=== PATIENT | male | born 1975 | race African-American/Black ===

== ENCOUNTER 2021-04-08 00:20 | Emergency (ER) | payer MEDICAID, MEDICARE, OTHER ==
[~2021-04-08] VITALS: Ht 172.7 cm; Wt 74.8 kg
--- NOTE | 2021-04-08 00:40 | NUR ---
PATIENT [id number] C/O SUICIDAL IDEATION WITH NO PLAN. PATIENT IS A/O, RR EVEN AND UNLABORED, NO SOB NOTED. PATIENT CONNECTED TO MEDICAL CLAIMS EXAMINER AND POX. SITTER AT BEDSIDE. WILL CONTINUE TO MONITOR. NO ACUTE DISTRESS NOTED.
[2021-04-08 00:56] LABS: BASOPHILS % (AUTO) 0.7 % (0.0-2.0); EOSINOPHILS % (AUTO) 1.8 % (0.0-6.0); HEMATOCRIT 36 % (39-51); LYMPHOCYTES # (AUTO) 1.8 K/uL (0.8-4.8); LYMPHOCYTES % (AUTO) 28.4 % (20.0-44.0); MEAN CORPUSCULAR HGB CONC 33 g/dl (31.0-36.0); MEAN CORPUSCULAR VOLUME 82 fL (80-96); MONOCYTES # (AUTO) 0.8 K/uL (0.1-1.30); MONOCYTES % (AUTO) 13.5 % (2.0-12.0); NEUTROPHILS # (AUTO) 3.5 K/uL (1.8-8.9); NEUTROPHILS % (AUTO) 55.6 % (43.0-81.0); PLATELET COUNT (AUTO) 312 K/uL (150-450); RED BLOOD CELL COUNT(AUTO) 4.44 MIL/uL (4.5-6.0); WHITE BLOOD COUNT (AUTO) 6.2 K/uL (4.3-11.0)
--- NOTE | 2021-04-08 02:15 | NUR ---
Patient is resting comfortably in bed with eyes closed. Easily aroused. VSS
[2021-04-08 03:37] LABS: CHLORIDE 100 mmol/L (98-107); POTASSIUM 3.8 mmol/L (3.5-5.1); SODIUM SERUM 138 mmol/L (136-145)
[2021-04-08 03:38] LABS: CALCIUM, SERUM 8.6 mg/dL (8.5-10.1); CARBON DIOXIDE 27 mmol/L (21-32); CREATININE 0.7 mg/dL (0.6-1.3); GLUCOSE 263 mg/dL (74-106); UREA NITROGEN, BLOOD 8 mg/dL (7-18)
[2021-04-08 03:43] LABS: ALANINE AMINOTRANSFERASE 32 U/L (12-78); ALBUMIN 3.6 g/dL (3.4-5.0); ALKALINE PHOSPHATASE 91 U/L (46-116); ASPARTATE AMINOTRANSFERASE 18 U/L (15-37); BILIRUBIN,DIRECT 0.1 mg/dL (0.0-0.2); BILIRUBIN,TOTAL 0.2 mg/dL (0.2-1.0); TOTAL PROTEIN, SERUM 7.5 g/dL (6.4-8.2)
[2021-04-08 03:44] LABS: ACETAMINOPHEN 0 ug/ml (10-30)
[2021-04-08 04:03] LABS: ALCOHOL, BLOOD < 3 mg/dL (0-0)
--- NOTE | 2021-04-08 04:28 | NUR ---
URINE SPECIMEN COLLECTED AND SENT TO LAB.
[2021-04-08 04:55] LABS: BILIRUBIN,URINE NEGATIVE (NEGATIVE); COLOR,URINE YELLOW (YELLOW); LEUKOCYTE ESTERASE ,URINE NEGATIVE (NEGATIVE); NITRITE, URINE NEGATIVE (NEGATIVE); PH,URINE 6.5 (5.0-8.0); PROTEIN,URINE NEGATIVE (NEGATIVE); UGLUCOSE >=1000 mg/dL (NEGATIVE)
[2021-04-08 05:32] LABS: BACTERIA,URINE None seen /HPF (None Seen); RBC,URINE 0-2 /HPF (0-2); SQUAMOUS EPITHELIAL CELL,UR Few /HPF (None Seen); WBC,URINE 0-2 /HPF (0-3)
--- NOTE | 2021-04-08 05:37 | NUR ---
pt sleeping, breathing evenly, attached to monitor
--- NOTE | 2021-04-08 07:51 | NUR ---
called [facility] intake for update. spoke to yani. no available beds at this time.
--- NOTE | 2021-04-08 20:00 | NUR ---
PATIENT IN BED RESTING, VSS, PATIENT PROVIDED WITH PO FLUID TOLERATING WELL. PATIENT NOTED WITH NO ACUTE DISTRESS. PATIENT CONNECTED TO MONITORS.
[2021-04-08] MEDS ORDERED: INSULIN REGULAR, HUMAN 100 UNIT/ML 10 ML VIAL ONE (20:23)
[2021-04-08] MEDS ORDERED: INSULIN REGULAR, HUMAN 100 UNIT/ML 10 ML VIAL SQ ONE (20:30)
--- NOTE | 2021-04-09 00:39 | NUR ---
REC'D A CALL FROM ART AT [facility]. PT GOT ACCEPTED AT [facility] BY DR CROCKETT, GOING TO UNIT 2. # FOR REPORT: [phone] "PLEASE ARRANGE TRANSPORTATION FOR AFTER 1100"
--- NOTE | 2021-04-09 00:48 | NUR ---
[facility] ETA: 1200 NOON
--- NOTE | 2021-04-09 02:14 | NUR ---
Patient is resting comfortably in bed with eyes closed. Easily aroused. VSS
--- NOTE | 2021-04-09 04:45 | NUR ---
PT SLEEPING, ATTACHED TO MONITOR AND POX.VSS
--- NOTE | 2021-04-09 05:50 | NUR ---
CALLED FOR REPORT. NOTIFIED TO CALL AFTER 0800HRS
--- NOTE | 2021-04-09 09:05 | NUR ---
report given to Babak CAMARA for balbina.
[2021-04-09 10:07] VITALS: BP 128/71
--- NOTE | 2021-04-09 10:08 | NUR ---
Patient given written and verbal discharge instructions. Patient verbalizes understanding of instructions. Patient is ambulatory with steady gait. Refuses offer of [facility] placement. Patient given list of available shelters in surrounding area.
== END 2021-04-09 10:08 ==
LOC: ER 00:22
DX: R45.851 Suicidal ideations (principal); Z59.00 Homelessness unspecified; Z20.822 Contact with and (suspected) exposure to COVID-19; R03.0 Elevated blood-pressure reading, without diagnosis of hypertension; Z53.29 Procedure and treatment not carried out because of patient's decision for other reasons; R73.9 Hyperglycemia, unspecified
CPT/HCPCS: 36415; 80048; 80076; 80143; 80307; 80320; 81001; 82962 ×2; 85025; 87426; 96372; 99285; C9803; J1815; G0480

== ENCOUNTER 2021-04-26 15:12 | Emergency (ER) | payer MEDICARE, OTHER ==
[~2021-04-26] VITALS: Ht 180.3 cm; Wt 70.3 kg
[2021-04-26 15:31] VITALS: BP 124/74
--- NOTE | 2021-04-26 15:32 | NUR ---
[id number] HEARING VOICES TO HURT HIMSELF BY RUNNING INTO TRAFFIC. PT CALM & COOPERATIVE, NAD NOTED AT THIS TIME. PT REQUESTING A MEAL. WILL CONT TO MONITOR.
[2021-04-26] MEDS ORDERED: OLANZAPINE 5 MG TABLET PO ONE (16:00)
[2021-04-26 16:01] LABS: BILIRUBIN,URINE SMALL (NEGATIVE); COLOR,URINE YELLOW (YELLOW); LEUKOCYTE ESTERASE ,URINE Negative (NEGATIVE); NITRITE, URINE Negative (NEGATIVE); PH,URINE 5.5 (5.0-8.0); PROTEIN,URINE 100 mg/dl (NEGATIVE); UGLUCOSE >=1000 mg/dL (NEGATIVE); UROBILINOGEN,URINE >=8.0 EU/dL (0.2)
[2021-04-26 16:06] LABS: BACTERIA,URINE Few /HPF (None Seen); MUCUS,URINE Few /LPF (None Seen); RBC,URINE 0-2 /HPF (0-2); SQUAMOUS EPITHELIAL CELL,UR Few /HPF (None Seen); WBC,URINE 0-2 /HPF (0-3)
[2021-04-26 16:07] LABS: SPERM,URINE Moderate /HPF (None Seen)
[2021-04-26] MEDS ORDERED: OLANZAPINE 5 MG TABLET ONE (17:46)
--- NOTE | 2021-04-26 17:48 | NUR ---
THE PATIENT IS HAVING DINNER. TOLERATES PROVIDED FOOD WELL.
--- NOTE | 2021-04-26 18:50 | NUR ---
PT RAVEN MONTEZ PA AWARE.
[2021-04-27] MEDS ORDERED: ZYPREXA (09:30)
[2021-04-27] MEDS ORDERED: QUET400T PO (09:30)
[2021-04-27] MEDS ORDERED: METF500T PO (09:30)
== END 2021-04-26 19:00 | disposition left against medical advice (07) ==
LOC: ER 16:16
DX: R45.851 Suicidal ideations (principal); Z20.822 Contact with and (suspected) exposure to COVID-19; G40.909 Epilepsy, unspecified, not intractable, without status epilepticus; F19.10 Other psychoactive substance abuse, uncomplicated; F20.9 Schizophrenia, unspecified; Z59.00 Homelessness unspecified; Z53.29 Procedure and treatment not carried out because of patient's decision for other reasons
CPT/HCPCS: 81001; C9803

== ENCOUNTER 2021-04-26 19:52 | Inpatient (IN) | payer MEDICARE, OTHER ==
[~2021-04-26] VITALS: Ht 175.3 cm; Wt 74.8 kg
--- NOTE | 2021-04-26 20:05 | NUR ---
PT BIBRA C/O BEING FOUND IN THE MIDDLE OF TRAFFIC AND SUICIDAL IDEATION. PT AAOX3 BREATHING EVENLY AND UNLABORED. PT ATTACHED TO MONITOR AND POX.PT CHANGED INTO GOWN, AND BELONGINGS TAKEN AWAY AND PLACED IN LOCKER. SITTER AT BEDSIDE. WILL CONTINUE TO MONITOR.
[2021-04-26 20:33] LABS: BASOPHILS % (AUTO) 0.4 % (0.0-2.0); EOSINOPHILS % (AUTO) 0.2 % (0.0-6.0); HEMATOCRIT 39 % (39-51); HEMOGLOBIN 13.1 g/dL (13.5-17.5); LYMPHOCYTES # (AUTO) 0.8 K/uL (0.8-4.8); MEAN CORPUSCULAR HGB CONC 34 g/dl (31.0-36.0); MEAN CORPUSCULAR VOLUME 79 fL (80-96); MONOCYTES # (AUTO) 0.6 K/uL (0.1-1.30); MONOCYTES % (AUTO) 6.7 % (2.0-12.0); NEUTROPHILS % (AUTO) 82.7 % (43.0-81.0); PLATELET COUNT (AUTO) 290 K/uL (150-450); RED BLOOD CELL COUNT(AUTO) 4.91 MIL/uL (4.5-6.0); WHITE BLOOD COUNT (AUTO) 8.4 K/uL (4.3-11.0)
[2021-04-26 20:46] LABS: ALANINE AMINOTRANSFERASE 21 U/L (12-78); ALBUMIN 3.9 g/dL (3.4-5.0); ALKALINE PHOSPHATASE 77 U/L (46-116); ASPARTATE AMINOTRANSFERASE 20 U/L (15-37); BILIRUBIN,DIRECT 0.3 mg/dL (0.0-0.2); BILIRUBIN,TOTAL 1.4 mg/dL (0.2-1.0); CARBON DIOXIDE 24 mmol/L (21-32); CHLORIDE 98 mmol/L (98-107); CREATININE 0.7 mg/dL (0.6-1.3); GLUCOSE 214 mg/dL (74-106); SODIUM SERUM 137 mmol/L (136-145); TOTAL PROTEIN, SERUM 8.3 g/dL (6.4-8.2); UREA NITROGEN, BLOOD 13 mg/dL (7-18)
[2021-04-26 20:47] LABS: ALCOHOL, BLOOD < 3 mg/dL (0-0); POTASSIUM 2.8 mmol/L (3.5-5.1)
--- NOTE | 2021-04-26 20:47 | NUR ---
PER LAB, POTASSIUM 2.8
[2021-04-26] MEDS ORDERED: POTASSIUM CHLORIDE 10 MEQ TABLET.SA ONE (20:59)
[2021-04-26] MEDS ORDERED: POTASSIUM CHLORIDE 20 MEQ TAB.PRT.SR PO ONE ×2 (20:59→21:00)
[2021-04-26] MEDS ORDERED: POTASSIUM CL. PREMIX PERIPHER. 50 ML ONE ×2 (21:00→21:02)
[2021-04-26] MEDS ORDERED: POTASSIUM CL. PREMIX PERIPHER. 50 ML IV ONE (21:00)
--- NOTE | 2021-04-26 21:26 | NUR ---
LFA #18 RFA S/L; PATENT AND INTACT PT SLEEPING AT THIS TIME; WILL WAIT TO ADMIN UNTIL PT WAKES UP. RESPONSIVE TO PAIN
[2021-04-26] MEDS ORDERED: IV NS 0.9% 1,000 ML BAG IV ONE (21:30)
--- NOTE | 2021-04-26 21:56 | NUR ---
URINE SENT TO LAB
[2021-04-26 22:40] LABS: BILIRUBIN,URINE SMALL (NEGATIVE); COLOR,URINE YELLOW (YELLOW); LEUKOCYTE ESTERASE ,URINE Negative (NEGATIVE); NITRITE, URINE Negative (NEGATIVE); PH,URINE 5.5 (5.0-8.0); PROTEIN,URINE 30 mg/dl (NEGATIVE); UGLUCOSE 500 MG/DL mg/dL (NEGATIVE)
[2021-04-26 22:42] LABS: BACTERIA,URINE Rare /HPF (None Seen); RBC,URINE NONE SEEN /HPF (0-2); SQUAMOUS EPITHELIAL CELL,UR Few /HPF (None Seen); WBC,URINE NONE SEEN /HPF (0-3)
--- NOTE | 2021-04-26 23:17 | NUR ---
COVID SWAB SENT TO LAB
[2021-04-26 23:32] LABS: CALCIUM, SERUM 9.1 mg/dL (8.5-10.1); CREATININE 0.7 mg/dL (0.6-1.3); POTASSIUM 2.9 mmol/L (3.5-5.1)
[2021-04-27 00:04] LABS: ACETAMINOPHEN < 2 ug/ml (10-30)
--- NOTE | 2021-04-27 01:42 | NUR ---
PT AWAKE AND COOPERATIVE, NEEDS MET
[2021-04-27] MEDS ORDERED: POTASSIUM CL. PREMIX PERIPHER. 0 ML ONE (01:55)
--- NOTE | 2021-04-27 02:35 | NUR ---
Patient is resting comfortably in bed with eyes closed. Easily aroused. VSS
--- NOTE | 2021-04-27 03:30 | NUR ---
PT WATCHING TV, ATTACHED TO MONITOR AND POX. VSS
--- NOTE | 2021-04-27 04:20 | NUR ---
Patient is resting comfortably in bed with eyes closed. Easily aroused. VSS
--- NOTE | 2021-04-27 05:24 | NUR ---
PT SLEEPING, EASILY AROUSABLE. ATTACHED TO MONITOR AND POX. VSS
[2021-04-27] MEDS ORDERED: METF500T PO (09:30)
[2021-04-27] MEDS ORDERED: QUET400T PO (09:30)
[2021-04-27] MEDS ORDERED: ZYPREXA (09:30)
--- NOTE | 2021-04-27 10:02 | NUR ---
THE PATIENT IS AWAKE, ALERT AND ORIENTED X3. DENIES ANY PAIN. RESPIRATION REGULAR AND UNLABORED. WILL CONTINUE TO MONITOR THE PATIENT.
--- NOTE | 2021-04-27 10:56 | NUR ---
PCR SWAB DONE AND SENT TO THE LAB
[2021-04-27] MEDS ORDERED: ACETAMINOPHEN 325 MG TABLET PO PRN (13:00)
[2021-04-27] MEDS ORDERED: ONDANSETRON HCL/PF 4 MG/2 ML VIAL IVP PRN (13:00)
[2021-04-27] MEDS ORDERED: Z GUARD REMEDY 2 OZ OINT TP PRN (13:00)
[2021-04-27] MEDS ORDERED: MAG HYDROX/AL HYDROX/SIMETH 30 ML UDC PO PRN (13:00)
--- NOTE | 2021-04-27 13:25 | NUR ---
US TECH AT PT'S BEDSIDE
[2021-04-27] MEDS ORDERED: ASPIRIN 81 MG TAB.CHEW PO ONE (15:00)
[2021-04-27 15:36] LABS: CREATINE KINASE, TOTAL 180 U/L (39-308)
[2021-04-27] MEDS ORDERED: ASPIRIN EC 81 MG TABLET.DR PO ONE (15:49)
--- NOTE | 2021-04-27 15:55 | NUR ---
CALLED [facility] 45-1 HOUR
[2021-04-27] MEDS ORDERED: METFORMIN 500 MG TABLET PO SCH (17:00)
--- NOTE | 2021-04-27 18:17 | NUR ---
FAXED CLINICALS TO [facility] INTAKE FOR [facility]
[2021-04-27 21:00] VITALS: BP 119/79
--- NOTE | 2021-04-27 21:17 | NUR ---
LAB AT BEDSIDE FOR BLOOD DRAW
[2021-04-27] MEDS ORDERED: QUETIAPINE FUMARATE 100 MG TABLET PO SCH (22:00)
--- NOTE | 2021-04-27 22:20 | NUR ---
PT ACCEPTED AT [facility] ACCEPTING DR JOINER REPORT
--- NOTE | 2021-04-27 23:14 | NUR ---
[facility] WILL CALL BACK FOR ETA. SPOKE WITH KASI
--- NOTE | 2021-04-27 23:32 | NUR ---
[facility] AT BEDSIDE FOR PT TRANSPORT TO [facility]. REPORT GIVEN TO HOA DENNISON FOR [facility]. REPORT GIVEN TO EMT WELL.
--- NOTE | 2021-04-27 23:51 | NUR ---
PT LEFT ON [facility] WITH 2 EMT. PT IS IN STABLE CONDITION FOR TRANSPORT.
[2021-04-28] MEDS ORDERED: PANTOPRAZOLE 40 MG TABLET.DR PO SCH (07:30)
[2021-04-28] MEDS ORDERED: ASPIRIN 81 MG TAB.CHEW PO SCH (09:00)
== END 2021-04-27 23:51 | DRG 918 ==
LOC: ER 19:54 → TRANSITION 04-27 12:06
PROVIDERS: ADMIT Nurse Practitioner Family; ATTEND Nurse Practitioner Family
DX: T43.621A Poisoning by amphetamines, accidental (unintentional), initial encounter (principal); R45.851 Suicidal ideations; D64.9 Anemia, unspecified; E11.65 Type 2 diabetes mellitus with hyperglycemia; E87.6 Hypokalemia; F20.9 Schizophrenia, unspecified; Z20.822 Contact with and (suspected) exposure to COVID-19; Z59.00 Homelessness unspecified; Z91.19 Patient's noncompliance with other medical treatment and regimen; G40.909 Epilepsy, unspecified, not intractable, without status epilepticus; Y92.89 Other specified places as the place of occurrence of the external cause; Z79.84 Long term (current) use of oral hypoglycemic drugs; F19.10 Other psychoactive substance abuse, uncomplicated; R77.8 Other specified abnormalities of plasma proteins
CPT/HCPCS: 36415; 71045-TC; 80048-TC; 80076-TC; 81001; 82550-TC; 83735-TC; 84132-TC; 84484-TC; 85025-TC; 87081-TC; C9803; G0378; G0480; J2405; J3480; J7030; J7050; U0003

== ENCOUNTER 2021-08-16 04:46 | Emergency (ER) | payer MEDICARE, OTHER ==
[~2021-08-16] VITALS: Ht 177.8 cm; Wt 68.0 kg
[~2021-08-16 04:46] MED LIST: METF500T PO; QUET400T PO; ZYPREXA
--- NOTE | 2021-08-16 05:41 | NUR ---
BIBS C/O AUDITORY HALLUCINATIONS TELLING HIM TO HARM HIMSELF SEEKING VOLUNTARY ADMISSION TO [facility]. PATIENT ALERT AND ORIENTED X3. AMBULATORY WITH NON LABORED BREATHING.
--- NOTE | 2021-08-16 05:53 | NUR ---
ORACLE DATABASE DEVELOPER AT PT'S BEDSIDE
--- NOTE | 2021-08-16 06:07 | NUR ---
COVID ANTIGEN SWAB COLLECTED AND SENT TO LAB
[2021-08-16 06:08] LABS: BILIRUBIN,URINE NEGATIVE (NEGATIVE); COLOR,URINE YELLOW (YELLOW); LEUKOCYTE ESTERASE ,URINE NEGATIVE (NEGATIVE); NITRITE, URINE NEGATIVE (NEGATIVE); PROTEIN,URINE NEGATIVE (NEGATIVE); UGLUCOSE 500 MG/DL mg/dL (NEGATIVE)
[2021-08-16 06:22] LABS: BASOPHILS % (AUTO) 0.6 % (0.0-2.0); EOSINOPHILS % (AUTO) 0.1 % (0.0-6.0); HEMATOCRIT 38 % (39-51); HEMOGLOBIN 12.9 g/dL (13.5-17.5); LYMPHOCYTES # (AUTO) 1.6 K/uL (0.8-4.8); MEAN CORPUSCULAR HGB CONC 34 g/dl (31.0-36.0); MEAN CORPUSCULAR VOLUME 78 fL (80-96); MONOCYTES # (AUTO) 0.6 K/uL (0.1-1.30); MONOCYTES % (AUTO) 9.2 % (2.0-12.0); NEUTROPHILS # (AUTO) 4.3 K/uL (1.8-8.9); NEUTROPHILS % (AUTO) 66.1 % (43.0-81.0); PLATELET COUNT (AUTO) 342 K/uL (150-450); RED BLOOD CELL COUNT(AUTO) 4.95 MIL/uL (4.5-6.0); WHITE BLOOD COUNT (AUTO) 6.5 K/uL (4.3-11.0)
[2021-08-16 06:50] LABS: ALANINE AMINOTRANSFERASE 25 U/L (12-78); ALBUMIN 3.6 g/dL (3.4-5.0); ALCOHOL, BLOOD < 3 mg/dL (0-0); ALKALINE PHOSPHATASE 80 U/L (46-116); ASPARTATE AMINOTRANSFERASE 24 U/L (15-37); BILIRUBIN,DIRECT 0.2 mg/dL (0.0-0.2); BILIRUBIN,TOTAL 0.7 mg/dL (0.2-1.0); CALCIUM, SERUM 8.7 mg/dL (8.5-10.1); CARBON DIOXIDE 30 mmol/L (21-32); CHLORIDE 100 mmol/L (98-107); CREATININE 0.6 mg/dL (0.6-1.3); GLUCOSE 218 mg/dL (74-106); POTASSIUM 3.4 mmol/L (3.5-5.1); SODIUM SERUM 136 mmol/L (136-145); TOTAL PROTEIN, SERUM 7.9 g/dL (6.4-8.2); UREA NITROGEN, BLOOD 9 mg/dL (7-18)
[2021-08-16 06:59] LABS: ACETAMINOPHEN 0 ug/ml (10-30)
--- NOTE | 2021-08-16 07:49 | NUR ---
BREAKFAST PROVIDED, TOLERATED WELL
[2021-08-16 09:46] LABS: RBC,URINE 0-2 /HPF (0-2)
--- NOTE | 2021-08-16 09:54 | NUR ---
FAXED CLINICALS TO [facility]
[2021-08-16 09:56] LABS: BACTERIA,URINE None seen /HPF (None Seen); SQUAMOUS EPITHELIAL CELL,UR Rare /HPF (None Seen); WBC,URINE 0-2 /HPF (0-3)
--- NOTE | 2021-08-16 11:43 | NUR ---
[facility] CALLED AND PT WAS ACCEPTED TO [facility] NUMBER FOR REPORT [phone] [facility] AFTER 1300 UNDER THE CARE OF DR. CACERES
[2021-08-16 12:13] VITALS: BP 132/85
--- NOTE | 2021-08-16 12:22 | NUR ---
CALLED [facility] FOR TRANSPORT TO [facility]. ETA 1515.
--- NOTE | 2021-08-16 12:56 | NUR ---
PICKED UP BY TRANSPORT IN STABLE CONDITION
== END 2021-08-16 13:02 ==
LOC: ER 04:59
DX: R45.851 Suicidal ideations (principal); F20.9 Schizophrenia, unspecified; Z59.00 Homelessness unspecified; Z20.822 Contact with and (suspected) exposure to COVID-19; F15.10 Other stimulant abuse, uncomplicated; E87.6 Hypokalemia; R73.9 Hyperglycemia, unspecified
CPT/HCPCS: 36415; 80048-TC; 80076-TC; 81001; 85025-TC; C9803; G0480

== ENCOUNTER 2022-10-14 01:59 | Emergency (ER) | payer MEDICAID, MEDICARE ==
[~2022-10-14] VITALS: Ht 175.3 cm; Wt 63.5 kg
--- NOTE | 2022-10-14 02:39 | NUR ---
BIBRA 889 AND [employer]. PATIENT REFUSED TO ANSWER ANY QUESTIONS. PLACED IN BED 18. AWITING MD FOR EVAL AND ORDERS.
[2022-10-14 02:54] VITALS: BP 145/78
[2022-10-14 04:04] LABS: BASOPHILS % (AUTO) 0.2 % (0.0-2.0); EOSINOPHILS % (AUTO) 0.1 % (0.0-6.0); HEMATOCRIT 37 % (39-51); HEMOGLOBIN 12.3 g/dL (13.5-17.5); LYMPHOCYTES # (AUTO) 1.5 K/uL (0.8-4.8); LYMPHOCYTES % (AUTO) 15.1 % (20.0-44.0); MEAN CORPUSCULAR HGB CONC 33 g/dl (31.0-36.0); MEAN CORPUSCULAR VOLUME 79 fL (80-96); MONOCYTES # (AUTO) 0.6 K/uL (0.1-1.30); MONOCYTES % (AUTO) 6.6 % (2.0-12.0); NEUTROPHILS # (AUTO) 7.6 K/uL (1.8-8.9); PLATELET COUNT (AUTO) 401 K/uL (150-450); RED BLOOD CELL COUNT(AUTO) 4.71 MIL/uL (4.5-6.0); WHITE BLOOD COUNT (AUTO) 9.8 K/uL (4.3-11.0)
[2022-10-14 04:32] LABS: ALANINE AMINOTRANSFERASE 16 U/L (12-78); ALBUMIN 3.3 g/dL (3.4-5.0); ALKALINE PHOSPHATASE 117 U/L (46-116); ASPARTATE AMINOTRANSFERASE 12 U/L (15-37); BILIRUBIN,DIRECT 0.1 mg/dL (0.0-0.2); BILIRUBIN,TOTAL 0.3 mg/dL (0.2-1.0); CALCIUM, SERUM 8.9 mg/dL (8.5-10.1); CARBON DIOXIDE 26 mmol/L (21-32); CHLORIDE 100 mmol/L (98-107); CREATININE 0.8 mg/dL (0.6-1.3); GLUCOSE 311 mg/dL (74-106); POTASSIUM 3.4 mmol/L (3.5-5.1); SODIUM SERUM 135 mmol/L (136-145); TOTAL PROTEIN, SERUM 7.7 g/dL (6.4-8.2); UREA NITROGEN, BLOOD 9 mg/dL (7-18)
[2022-10-14 04:35] LABS: ALCOHOL, BLOOD < 3 mg/dL (0-0)
--- NOTE | 2022-10-14 08:20 | NUR ---
URINE SPECIMEN COLLECTED, LAB CALLED FOR DIE SINKER.
[2022-10-14 09:18] LABS: BILIRUBIN,URINE NEGATIVE (NEGATIVE); COLOR,URINE YELLOW (YELLOW); LEUKOCYTE ESTERASE ,URINE NEGATIVE (NEGATIVE); NITRITE, URINE NEGATIVE (NEGATIVE); PROTEIN,URINE NEGATIVE (NEGATIVE); UGLUCOSE 3+ mg/dL (NEGATIVE); UROBILINOGEN,URINE 0.2 EU/dL (0.2)
[2022-10-14 09:32] LABS: BACTERIA,URINE None seen /HPF (None Seen); RBC,URINE 0-2 /HPF (0-2); SQUAMOUS EPITHELIAL CELL,UR Rare /HPF (None Seen); WBC,URINE NONE SEEN /HPF (0-3)
--- NOTE | 2022-10-14 14:26 | NUR ---
JULIAN WANTS BLOOD SUGAR BELOW 250, AND TO MEDICATE W/ POTASSIUM. DR RICE AWARE.
[2022-10-14] MEDS ORDERED: POTASSIUM CHLORIDE 20 MEQ TAB.PRT.SR PO ONE ×2 (14:30→14:35)
[2022-10-14] MEDS ORDERED: INSULIN REGULAR, HUMAN 100 UNIT/ML 10 ML VIAL ONE (14:46)
[2022-10-14] MEDS ORDERED: IV NS 0.9% 1,000 ML BAG IV ONE (15:00)
[2022-10-14] MEDS ORDERED: INSULIN REGULAR, HUMAN 100 UNIT/ML 10 ML VIAL SQ ONE (15:00)
--- NOTE | 2022-10-14 15:01 | NUR ---
REFUSED IV FLUIDS, DR RICE AWARE.
--- NOTE | 2022-10-14 17:21 | NUR ---
REPEAT ACCUCHECK 233. DR RICE AWARE.
--- NOTE | 2022-10-14 19:06 | NUR ---
CLINICALS RE FAXED TO [facility] AND [facility].
--- NOTE | 2022-10-14 19:51 | NUR ---
PT GOING TO [facility] [phone] FOR REPORT TO JESI. ETA 1 HOUR.
--- NOTE | 2022-10-14 20:03 | NUR ---
REPORT GIVEN TO NOREEN CAMARA FROM [facility] FOR [facility]
--- NOTE | 2022-10-14 21:28 | NUR ---
PT NO LONGER SUICIDAL AND HAS NO PLAN
--- NOTE | 2022-10-14 21:29 | NUR ---
[facility] TRANSPORT ARRIVED. PT REFUSING TO GO TO [facility]. PT THEN ELOPED FROM ER. DR ROBLES NOTIFIED.
== END 2022-10-14 21:30 | disposition left against medical advice (07) ==
LOC: ER 02:01
DX: R45.851 Suicidal ideations (principal); F19.10 Other psychoactive substance abuse, uncomplicated; R44.0 Auditory hallucinations; Z59.00 Homelessness unspecified; Z79.899 Other long term (current) drug therapy; Z20.822 Contact with and (suspected) exposure to COVID-19; Z88.1 Allergy status to other antibiotic agents
CPT/HCPCS: 99283; 96372; 85025; 80048; 80076; 81001; 36415; 82962 ×4; 87426; 80143; 80320; 80307; J1815; J7030; C9803; G0480

== ENCOUNTER 2022-10-15 00:52 | Emergency (ER) | payer MEDICAID, MEDICARE ==
[~2022-10-15] VITALS: Ht 175.3 cm; Wt 63.5 kg
[2022-10-15] MEDS ORDERED: LORAZEPAM INJ 2 MG/ML VIAL ONE (01:13)
[2022-10-15] MEDS ORDERED: diphenhydrAMINE HCL 50 MG/ML VIAL ONE (01:13)
[2022-10-15] MEDS ORDERED: HALOPERIDOL LACTATE INJ 5 MG/ML VIAL ONE (01:13)
[2022-10-15] MEDS: LORAZEPAM INJ 2 MG/ML VIAL IM ONE (01:17)
[2022-10-15] MEDS: diphenhydrAMINE HCL 50 MG/ML VIAL IM ONE (01:17)
[2022-10-15] MEDS: HALOPERIDOL LACTATE INJ 5 MG/ML VIAL IM ONE (01:18)
--- NOTE | 2022-10-15 01:18 | NUR ---
PT PLACED ON 5150 HOLD GD @0050
[2022-10-15 01:28] LABS: BASOPHILS # (AUTO) 0.1 K/uL (0.0-0.2); BASOPHILS % (AUTO) 0.6 % (0.0-2.0); EOSINOPHILS % (AUTO) 0.1 % (0.0-6.0); HEMATOCRIT 37 % (39-51); LYMPHOCYTES # (AUTO) 1.3 K/uL (0.8-4.8); LYMPHOCYTES % (AUTO) 12.1 % (20.0-44.0); MEAN CORPUSCULAR HGB CONC 33 g/dl (31.0-36.0); MEAN CORPUSCULAR VOLUME 78 fL (80-96); MONOCYTES # (AUTO) 0.8 K/uL (0.1-1.30); MONOCYTES % (AUTO) 7.4 % (2.0-12.0); NEUTROPHILS # (AUTO) 8.3 K/uL (1.8-8.9); NEUTROPHILS % (AUTO) 79.8 % (43.0-81.0); PLATELET COUNT (AUTO) 393 K/uL (150-450); RED BLOOD CELL COUNT(AUTO) 4.72 MIL/uL (4.5-6.0); WHITE BLOOD COUNT (AUTO) 10.4 K/uL (4.3-11.0)
[2022-10-15 01:31] LABS: BILIRUBIN,URINE NEGATIVE (NEGATIVE); COLOR,URINE YELLOW (YELLOW); LEUKOCYTE ESTERASE ,URINE NEGATIVE (NEGATIVE); NITRITE, URINE NEGATIVE (NEGATIVE); PROTEIN,URINE NEGATIVE (NEGATIVE); UGLUCOSE 3+ mg/dL (NEGATIVE)
[2022-10-15 01:44] LABS: BACTERIA,URINE None seen /HPF (None Seen)
[2022-10-15 01:49] LABS: ALANINE AMINOTRANSFERASE 18 U/L (12-78); ALBUMIN 3.2 g/dL (3.4-5.0); ALKALINE PHOSPHATASE 104 U/L (46-116); ASPARTATE AMINOTRANSFERASE 10 U/L (15-37); BILIRUBIN,DIRECT 0.1 mg/dL (0.0-0.2); BILIRUBIN,TOTAL 0.4 mg/dL (0.2-1.0); CALCIUM, SERUM 9.6 mg/dL (8.5-10.1); CARBON DIOXIDE 28 mmol/L (21-32); CHLORIDE 101 mmol/L (98-107); CREATININE 0.8 mg/dL (0.6-1.3); SODIUM SERUM 134 mmol/L (136-145); TOTAL PROTEIN, SERUM 7.8 g/dL (6.4-8.2); UREA NITROGEN, BLOOD 10 mg/dL (7-18)
[2022-10-15 01:54] LABS: ALCOHOL, BLOOD < 3 mg/dL (0-0)
[2022-10-15 01:55] LABS: GLUCOSE 373 mg/dL (74-106)
--- NOTE | 2022-10-15 01:55 | NUR ---
BLOOD GLUCOSE 373; DR ALBA DO AWARE
[2022-10-15] MEDS ORDERED: INSULIN REGULAR, HUMAN 100 UNIT/ML 10 ML VIAL ONE (02:33)
[2022-10-15] MEDS: IV NS 0.9% 1,000 ML BAG IV ONE (02:50)
[2022-10-15] MEDS: INSULIN REGULAR, HUMAN 100 UNIT/ML 10 ML VIAL IV ONE (02:52)
--- NOTE | 2022-10-15 04:06 | NUR ---
BLOOD GLUCOSE 125; DR ALBA DO AWARE
--- NOTE | 2022-10-15 11:51 | NUR ---
[facility] FAXED CLINICALS TO THE FOLLOWING [facility] FOR POSSIBLE PLACEMENT: [facility] tel:[phone] FAX:[phone] [facility] TEL: [phone] fax: [phone] [facility] tel:[phone]; 4 FAX: [phone] [facility] fax:[phone] tel:[phone]
--- NOTE | 2022-10-15 14:20 | NUR ---
[facility] FAXED CLINICALS TO THE FOLLOWING [facility] FOR POSSIBLE PLACEMENT: [facility] tel:[phone] FAX:[phone] no beds [facility] TEL: [phone] fax: [phone] [facility] tel:[phone]; 4 FAX: [phone] no beds [facility] fax:[phone] tel:[phone] no beds at this time
--- NOTE | 2022-10-15 19:00 | NUR ---
PT SLEEPING. RR EVEN AND NONLABORED
--- NOTE | 2022-10-16 02:31 | NUR ---
PROVIDE PT WITH JUICE AND WATER; TOLERATING WELL.
--- NOTE | 2022-10-16 11:20 | NUR ---
COVID PCR COLLECTED AND SENT
--- NOTE | 2022-10-16 13:13 | NUR ---
[facility] CALL[facility] WITH ACCEPT[facility] INFO PT IS GOING TO EAST UNIT BED 285 A NUMBER FOR REPORT [phone] THE CARE OF DR. HANSEN
[2022-10-16 13:15] VITALS: BP 129/74
--- NOTE | 2022-10-16 13:16 | NUR ---
CALLED [facility] AND SET UP BLS TRANSPORT ETA 1347
--- NOTE | 2022-10-16 14:11 | NUR ---
REPORT GIVEN TO ORTIZ FOR JOS[facility]
--- NOTE | 2022-10-16 14:15 | NUR ---
TRASNPORTATION ARRIVED, PT BEING TRANSPORTED TO [facility] IN STABLE CONDITION.
== END 2022-10-16 14:16 ==
LOC: ER 00:53
DX: F99 Mental disorder, not otherwise specified (principal); E11.9 Type 2 diabetes mellitus without complications; F20.9 Schizophrenia, unspecified; Z20.822 Contact with and (suspected) exposure to COVID-19; Z88.8 Allergy status to other drugs, medicaments and biological substances; Z59.00 Homelessness unspecified
CPT/HCPCS: 99285; 96372 ×2; 96374; 96361; 85025; 80048; 87086; 80076; 81001; 36415; 82962 ×2; 80320; 80307; J2060; J1200; J1630; J1815; J7030; U0003; C9803; G0480